=== PATIENT | male | born 1965 | race Caucasian/White ===

== ENCOUNTER 2020-11-18 11:12 | Outpatient (REF) | payer OTHER, SELFPAY | END 2020-11-18 11:13 | disposition home or self-care (01) | LOC: HO.SCI 11:12 | PROVIDERS: Visit Provider Psychiatry & Neurology Neurology | DX: Z13.89 Encounter for screening for other disorder (principal) ==

== ENCOUNTER 2020-11-25 07:19 | Outpatient (REF) | payer OTHER, SELFPAY ==
--- NOTE | ~2020-11-25 | MR_ITS ---
EXAMINATION: MRI BRAIN WITHOUT CONTRAST CLINICAL INFORMATION: Cerebellar degeneration. COMPARISON: No relevant prior imaging. TECHNIQUE: Multiplanar MR imaging of the brain was performed without contrast. FINDINGS: There are scattered nonspecific foci of T2 FLAIR signal hyperintensity within the periventricular white matter. No acute territorial infarct. No pathological magnetic susceptibility artifact. Intracranial arterial flow voids are maintained. There is no intracranial mass effect or midline shift. No abnormal extra-axial collection. Lateral and third ventricles are proportionate to the subarachnoid spaces. No hydrocephalus. Midline structures including the cervicomedullary junction are normal. No acute bone marrow signal changes. There is no mastoid middle ear effusion. Mild paranasal sinus disease primarily affecting the ethmoid air cells. Globes and orbits are symmetric. MR/MR head/brain wo con IMPRESSION: There are scattered chronic small vessel ischemic changes within the periventricular white matter. Otherwise MR examination. No evidence of acute territorial infarct or hemorrhage. Unremarkable appearance of the cerebellum and brainstem.
== END 2020-11-25 07:20 | disposition home or self-care (01) ==
LOC: HO.MRI 07:19
PROVIDERS: PCP Internal Medicine; Visit Provider Psychiatry & Neurology Neurology
DX: G31.9 Degenerative disease of nervous system, unspecified (principal)
CPT/HCPCS: 70551

== ENCOUNTER 2023-04-24 10:37 | Outpatient (REF) | payer OTHER, SELFPAY ==
[2023-04-30 15:32] LABS: Vitamin B1 23 nmol/L (8-30)
== END 2023-04-24 10:38 | disposition home or self-care (01) ==
LOC: HO.LAB 10:37
PROVIDERS: Visit Provider Psychiatry & Neurology Neurology
DX: G62.9 Polyneuropathy, unspecified (principal)
CPT/HCPCS: 36415; 80048; 80076; 82607; 82746; 84425; 84436; 84443

== ENCOUNTER 2025-02-02 11:02 | Outpatient (AMB) | payer MEDICARE, MEDICAID, SELFPAY ==
--- NOTE | 2025-02-02 11:09 | A.OFFVIS_ITS ---
Intake Visit Reasons: 6 mnts Allergies No Known Allergies Allergy (Verified 02/02/25 11:10) Medication List - Last Reconciled 02/02/25 by Luisa Rodriguez CNP bupropion HCl XL (Wellbutrin XL) 300 mg PO QAM cholecalciferol (vitamin D3) 50 mcg PO DAILY ferrous sulfate (Feosol) 325 mg PO DAILY gabapentin mg PO magnesium oxide 300 mg PO DAILY mecobalamin (vitamin B12) 1,000 mcg PO DAILY multivitamin 1 tab PO DAILY thiamine HCl (vitamin B1) 50 mg PO DAILY HPI Comments Details: He was doing okay. Pain was manageable with gabapentin. Occasional squeezing type pain in legs and rare sharp shooting pains in feet.? Has constant numbness in feet with some intermittent numbness and sensitivity up to knees. Feet are always cold. Sleep was okay.?Balance was off at times, no falls. 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 Numbness in fingers worse with colder weather. Forgetful at times. Ongoing knee pain, tried injections which did not help. Labs apparently showed low platelet count and was found to have cysts on liver.? Has noticed difficulty with short term memory starting around 2020. By his own admission, he was drinking 1 pint of vodka a day for many years. Has not been drinking since 12/2020. [facility] Medical History (Updated 02/02/25 @ 11:14 by Luisa Rodriguez CNP) MCI (mild cognitive impairment) Peripheral neuropathy Cerebellar degeneration Review of Systems Const Denies chills, Denies daytime sleepiness, Denies difficulty sleeping, Denies fatigue, Denies fever(s), Denies frequent falls, Denies headache(s), Denies increased appetite, Denies poor appetite, Denies snoring, Denies weakness, Denies weight gain and Denies weight loss Eyes Denies loss of vision ENT Denies vertigo, Denies dizziness, Denies headache(s) and Denies neck pain Card Denies chest pain at rest, Denies chest pain with activity, Denies syncope, Denies leg edema, Denies palpitations, Denies dyspnea and Denies dyspnea on exertion Resp Denies cough, Denies dyspnea, Denies dyspnea on exertion and Denies snoring GI Denies abdominal pain, Denies constipation, Denies heartburn, Denies diarrhea and Denies nausea Denies urinary frequency, Denies urinary incontinence and Denies urinary urgency Musc Denies abnormal gait, Denies back pain, Denies myalgias, Reports arthralgias, Denies neck pain, Reports numbness and Reports tingling Neuro Denies abnormal gait, Denies vertigo, Denies dizziness, Denies syncope, Denies frequent falls, Denies headache(s), Denies lack of coordination, Denies loss of vision, Reports memory loss, Reports numbness, Denies Other visual disturbances, Denies restless legs, Denies seizure-like activity, Reports tingling, Denies paresthesias, Denies tremor(s) and Denies weakness Psych Denies anxiety, Denies depression, Denies auditory hallucinations, Reports memory loss and Denies visual hallucinations Endo Denies fatigue and Denies palpitations Physical Exam Const Other: General Appearance:? normal, in no acute distress. Heart:? S1, S2 normal, no murmurs. Lungs:? clear anteriorly and posteriorly. Musculoskeletal:? normal. Extremities:? no edema. Psych:? alert, as below Neuro Other: Abnormal Neurological Findings:?MMSE 25/30. Mild tremor to bilateral upper extremities in sustained posture. Slight ataxia on [id number]. Truncal ataxia. Absent ankle reflexes. Decreased pinprick sensation below the ankles. Vibration sensation decreased below ankles. Mental Status: alert, as below Cranial Nerves: Pupils are equal, round, and reactive to light. External ocular muscles are intact. Visual mckeon are full, no ptosis. Face is symmetrical, no facial weakness or droop. Facial sensations are normal. Tongue protrudes in midline. Palate elevates symmetrically. Shoulder shrugging is normal Motor Examination: As above, otherwise normal muscle tone, bulk and strength. No atrophy or fasciculations. No drift of the extended upper extremities. DTR 2+. Plantars are flexor. Sensory Exam: As above Gait Exam: Truncal ataxia Cerebellar Signs: [id number] as above Extrapyramidal System: Tremor as above. No rigidity with normal facial expressions. No bradykinesia. No bradyphrenia. Normal arm swing and posture. No propulsion or retropulsion. Speech: Normal. No dysphasia or dysarthria. MMSE Level of Consciousness: Alert. Orientation: Knows correct year, month, date, day and season. Knows correct city, county and state. Knows correct location and floor. Registration: Able to register 3 objects. Attention: Serial 7's performed accurately to 93 Recall: Able to recall 1 out of 3 objects. Language: Normal spontaneous speech, fluency, repetition, naming, comprehension, reading, and writing. Total Score: 25/30. Assessment & Plan Assessment & Plan (1) Peripheral neuropathy: Code(s): G62.9 - Polyneuropathy, unspecified Category: Medical Qualifiers: Peripheral neuropathy type: polyneuropathy, unspecified Qualified Code(s): G62.9 - Polyneuropathy, unspecified Plan: Continue gabapentin 300mg 1 capsule twice a day and 2 capsules at bedtime (2) Cerebellar degeneration: Code(s): G31.9 - Degenerative disease of nervous system, unspecified Category: Medical Plan: . (3) MCI (mild cognitive impairment): Code(s): G31.84 - Mild cognitive impairment of uncertain or unknown etiology Category: Medical Plan: Stay physically and socially active. Medications: New gabapentin 300 mg orally 1 capsule twice a day and 2 caps at bedtime; 120 caps 5RF 30 days Discontinued gabapentin Discontinued Reason: Order PO Coding Level of Care Code Est Pt Level 4 (09883) Diagnoses Peripheral polyneuropathy G62.9 Peripheral neuropathy type: polyneuropathy, unspecified Cerebellar degeneration G31.9 MCI (mild cognitive impairment) G31.84
--- OUTSIDE RECORDS SUMMARY | 2025-02-02 12:20 | XMS_ITS | Clinical Summary ---
Author Organization [facility] Address [address] [place] [address] Phone Care Team Providers Care Blower Mechanic Name Role Phone Iván Kimble MD Primary Care Provider Allergies No known active allergies Medications buPROPion XL (WELLBUTRIN XL) 300 mg 24 hr tablet Take 1 tablet (300 mg total) by mouth 1 (one) time each day. 4 Active busPIRone (BUSPAR) 15 mg tablet Take 1 tablet (15 mg total) by mouth 3 (three) times a day if needed. 4 Active cholecalciferol (VITAMIN D-3) 50 mcg (2,000 unit) capsule Take 2,000 Units by mouth daily. - Oral Active cyanocobalamin (VITAMIN B-12) 1,000 mcg tablet Take by mouth. - Oral Active gabapentin (NEURONTIN) 300 mg capsule Take 1 capsule (300 mg total) by mouth 3 (three) times a day. - Oral Active magnesium oxide 400 mg magnesium capsule Magnesium ([facility]S Triple Magnesium Complex) 400 MG CAPS Take by mouth. - Oral Active multivitamin with minerals (CENTRUM) tablet Take by mouth daily. - Oral Active B-COMPLEX WITH VITAMIN C ORAL Take 1 tablet by mouth daily. - Oral Active Active Problems Problem Noted Date Diagnosed Date Chronic pain of both knees 06/02/2024 Liver hemangioma 03/11/2024 Encounters Date Type Department Care Team Description 12/31/2024 Telephone [facility] Hematology Oncology [address] [place] [address] Jeane Bass PA 12/15/2024 11:30 AM EDT Office Visit [facility] Hematology Oncology [address] [place] [phone] Jeane Bass PA Thrombocytopenia (CMS/HCC V24) (Primary Dx); History of heavy alcohol consumption; Liver hemangioma from Last 3 Months Immunizations Name Administration Dates Next Due Zoster recombinant (Shingrix) 19yo and older 09/2023 Family History Medical History Relation Name Comments Lung cancer Mother Relation Name Status Comments Mother Social History Tobacco Use Types Packs/Day Years Used Date Smoking Tobacco: Every Day Tobacco Cessation:Ready to Q uit: Not Asked; Counseling Given: Not Answered Alcohol Use Standard Drinks/Week Comments Not Currently 0 (1 standard drink = 0.6 oz pur e alcohol) Sex and Gender Information Value Date Recorded Sex Assigned at Not on file Legal Sex Male 2:49 AM EST Gender Identity Not on file Sexual Orientation Not on file Obstetrics History Last Filed Vital Signs Vital Sign Reading Time Taken Comments Blood Pressure 116/72 12/15/2024 11:30 AM EDT Pulse 63 12/15/2024 11:30 AM EDT Temperature 36.4 C (97.6 F) 12/15/2024 11:30 AM EDT Respiratory Rate 12 06/02/2024 9:28 AM EST Oxygen Saturation 100% 12/15/2024 11:30 AM EDT Inhaled Oxygen Concentration - - Weight 68 kg (150 lb) 12/15/2024 11:30 AM EDT Height 180.3 cm (5' 11 ) 06/16/2024 3:41 PM EST Body Mass Index 20.92 06/16/2024 3:41 PM EST Plan of Treatment Upcoming Encounters Date Type Department Care Team (Late st Contact Info) Description 03/18/2025 10:45 AM EDT Appointment Radiology Department - [address] [phone] 04/22/2025 3:00 PM EDT Office Visit Adult Medicine [address] [phone] Iván Kimble MD [address] [place] [phone] 06/15/2025 1:30 PM EST Office Visit [facility] Hematology Oncology [address] [place] [address] [phone] Jeane Bass PA [address] [place] [address] Health Maintenance Due Date Last Done Comments Hepatitis A Vaccines (1 of 2 - Risk 2-dose series) 1985 Hepatitis B Vaccines (1 of 3 - 19+ 3-dose series) 1985 Pneumococcal Vaccine: 50+ Years (1 of 2 - PCV) 1985 Cholesterol Screening (Lipid Panel) 06/23/2022 Colorectal Cancer Screening: Colonoscopy 06/23/2022 HIV Screening 06/23/2022 Hepatitis C Screening 06/23/2022 Lung Cancer Screening (Low Dose CT) 06/23/2022 Medicare Annual Wellness Visit 06/23/2022 Social Influencers of Health Screening 06/23/2022 DTaP,Tdap,and Td Vaccines (2 - Td or Tdap) 06/07/2024 06/07/2014 Depression Screening 07/15/2024 Influenza Vaccine (#1) 2025 4, 04/18/2022, 05/06/2020, Additional history exists COVID-19 Vaccine Completed 04/03/2024, 02/2022, 12/14/2020, Additional history exists Zoster Vaccines Completed 04/16/2024, 02/12/2024 HIB Vaccines Aged Out No longer eligi ble based on patient's age to complete this topic HPV Vaccines Aged Out No longer eligi ble based on patient's age to complete this topic IPV Vaccines Aged Out No longer eligi ble based on patient's age to complete this topic MMR Vaccines Aged Out No longer eligi ble based on patient's age to complete this topic Meningococcal ACWY Vaccine Aged Out N o longer eligible based on patient's age to complete this topic Meningococcal B Vaccine Aged Out No l onger eligible based on patient's age to complete this topic RSV Immunization Patients Under 20 months Aged Out No longer eligible based on patient's age to complete this topic Varicella Vaccines Aged Out No longer eligible based on patient's age to complete this topic Goals Goal Patient Goal Type Associated Problems Recent Progress Patient-Stated? Author STG's 6 visits General Yes Kennedy Cuello, PT Note: Pt will report a 25% decrease in difficulty when negotiating stairs to enter/exit his home. (Not met) Pt will report a 2 point decrease in B knee pain with prolonged walking. (Not met). Pt will be I and compliant w/ initial HEP of stretching. (Met) LTG 12 visits. General Yes Kennedy Cuello, PT Note: Pt will report a 35% decrease in difficulty when negotiating stairs to enter/exit his home. (Not met). Pt will report a 3 point decrease in B knee pain with prolonged walking. (Not met) Pt will be I and compliant w/ final HEP of CKC strengthening. (Met) Procedures Procedure Name Priority Date/Time Associated Diagnosis Comments CBC WITH AUTO DIFFERENTIAL Routine 12/08/2024 11:37 AM EDT Thrombocytopenia ([facility]/HCC V24) COMPREHENSIVE METABOLIC PANEL Routine 12/08/2024 11:37 AM EDT Thrombocytopenia ([facility]/HCC V24) History of heavy alcohol consumption Liver hemangioma CBC AND DIFFERENTIAL Routine 12/08/2024 11:37 AM EDT Thrombocytopenia ([facility]/HCC V24) from Last 3 Months Results * (ABNORMAL) CBC auto differential (12/08/2024 11:37 AM EDT) WBC 6.3 4.8 - 10.8 K/mcL LAB HEMETOLOGY METHOD 12/08/2024 1:53 PM EDT [facility] RBC 4.80 4.50 - 5.50 M/mcL LAB HEMETOLOGY METHOD 12/08/2024 1:53 PM EDT [facility] Hemoglobin 14.8 13.5 - 17.5 g/dL LAB HEMETOLOGY METHOD 12/08/2024 1:53 PM EDT [facility] Hematocrit 44.7 42.0 - 54.0 % LAB HEMETOLOGY METHOD 12/08/2024 1:53 PM EDT [facility] MCV 93.7 79.0 - 98.0 FL LAB HEMETOLOGY METHOD 12/08/2024 1:53 PM EDT [facility] MCH 31.0 27.0 - 32.0 pcg LAB HEMETOLOGY METHOD [facility] MCHC 33.1 32.0 - 37.0 g/dL LAB HEMETOLOGY METHOD 12/08/2024 1:53 PM EDT [facility] RDW 13.1 11.0 - 15.0 % LAB HEMETOLOGY METHOD 12/08/2024 1:53 PM EDT [facility] Platelets 54(L) 130 - 400 K/mcL LAB HEMETOLOGY METHOD 12/08/2024 1:53 PM EDT [facility] Comment:previously verified by slide MPV 12.4(H) 7.0 - 11.0 FL LAB HEMETOLOGY METHOD 12/08/2024 1:53 PM EDT [facility] NRBC 0.0 <1.0 % LAB HEMETOLOGY METHOD 12/08/2024 1:53 PM EDT [facility] NRBC Absolute 0.00 <0.10 K/mcL LAB HEMETOLOGY METHOD 12/08/2024 1:53 PM EDT [facility] Neutrophils Relative 55.9 % LAB HEMETOLOGY METHOD 12/08/2024 1:53 PM EDT [facility] Lymphocytes Relative 34.4 % LAB HEMETOLOGY METHOD 12/08/2024 1:53 PM EDT [facility] Monocytes Relative 6.5 % LAB HEMETOLOGY METHOD 12/08/2024 1:53 PM EDT [facility] Eosinophils Relative 2.5 % LAB HEMETOLOGY METHOD [facility] Basophils Relative 0.5 % LAB HEMETOLOGY METHOD 12/08/2024 1:53 PM EDT [facility] Immature Granulocytes Relative 0.2 % LAB HEMETOLOGY METHOD 12/08/2024 1:53 PM EDT [facility] Neutrophils Absolute 3.55 1.50 - 7.00 K/mcL LAB HEMETOLOGY METHOD 12/08/2024 1:53 PM EDT [facility] Lymphocytes Absolute 2.18 1.00 - 5.00 K/mcL LAB HEMETOLOGY METHOD 12/08/2024 1:53 PM EDT [facility] Monocytes Absolute 0.41 0.20 - 1.00 K/mcL LAB HEMETOLOGY METHOD 12/08/2024 1:53 PM EDT [facility] Eosinophils Absolute 0.16 0.00 - 0.50 K/mcL LAB HEMETOLOGY METHOD 12/08/2024 1:53 PM EDT [facility] Basophils Absolute 0.03 0.00 - 0.20 K/mcL LAB HEMETOLOGY METHOD 12/08/2024 1:53 PM EDT [facility] Immature Granulocytes Absolute 0.01 0.00 - 0.03 K/mcL LAB HEMETOLOGY METHOD 12/08/2024 1:53 PM EDT [facility] Blood Venous blood specimen / Unknown Venipuncture / Unknown 12/08/2024 11:37 AM EDT 12/08/2024 1:33 PM EDT us Jeane MCWILLIAMS LAB BLOOD ORDERABLES Final Re sult [facility] [address] [place] [address], * Comprehensive metabolic panel (12/08/2024 11:37 AM EDT) Sodium 137 133 - 145 mmol/L LAB CHEMISTRY METHOD 12/08/2024 1:58 PM EDT [facility] Potassium 4.4 3.5 - 5.5 mmol/L LAB CHEMISTRY METHOD 12/08/2024 1:58 PM [facility] Chloride 105 96 - 110 mmol/L LAB CHEMISTRY METHOD 12/08/2024 1:58 PM [facility] CO2 26 21 - 32 mmol/L LAB CHEMISTRY METHOD 12/08/2024 1:58 PM [facility] Anion Gap 6 3 - 11 LAB CHEMISTRY METHOD 12/08/2024 1:58 PM [facility] Glucose 96 70 - 100 mg/dL LAB CHEMISTRY METHOD 12/08/2024 1:58 PM [facility] BUN 14 5 - 25 mg/dL LAB CHEMISTRY METHOD 12/08/2024 1:58 PM [facility] Creatinine 1.04 0.70 - 1.30 mg/dL LAB CHEMISTRY METHOD 12/08/2024 1:58 PM [facility] eGFR 83 >=60 mL/min/1. 73m2 LAB CHEMISTRY METHOD 12/08/2024 1:58 PM [facility] Comment:Calculation based on the Chronic Kidney Disease Epidemiology Collaboration (CKD-EPI) equation refit without adjustment for race. BUN/Creatinine Ratio 13.5 LAB CHEMISTRY METHOD 12/08/2024 1:58 PM [facility] Calcium 9.3 8.5 - 10.5 mg/dL LAB CHEMISTRY METHOD 12/08/2024 1:58 PM [facility] AST (SGOT) 12 10 - 42 unit/L LAB CHEMISTRY METHOD 12/08/2024 1:58 PM [facility] ALT (SGPT) 26 10 - 60 unit/L LAB CHEMISTRY METHOD 12/08/2024 1:58 PM [facility] Alkaline Phosphatase 69 42 - 121 unit/L LAB CHEMISTRY METHOD 12/08/2024 1:58 PM [facility] Total Protein 7.2 6.0 - 8.0 g/dL LAB CHEMISTRY METHOD 12/08/2024 1:58 PM EDT [facility] Albumin 4.0 3.2 - 5.0 g/dL LAB CHEMISTRY METHOD 12/08/2024 1:58 PM EDT [facility] Total Bilirubin 0.4 0.0 - 1.4 mg/dL LAB CHEMISTRY METHOD 12/08/2024 1:58 PM EDT [facility] Blood Venous blood specimen / Unknown Venipuncture / Unknown 12/08/2024 11:37 AM EDT 12/08/2024 1:33 PM EDT us Jeane MCWILLIAMS LAB BLOOD ORDERABLES Final Re sult [facility] [address] [place] [address], from Last 3 Months Insurance MEDICAID - [place] MEDICARE Care Teams Blower Mechanic Relationship Specialty Start Date End Date Iván Kimble MD [address] [place] [address] PCP - General 10/31/23
--- OUTSIDE RECORDS SUMMARY | 2025-02-02 12:20 | XMS_ITS | Clinical Summary ---
Author Organization [facility] Address [address] [place] [address] Care Team Providers Care Retirement Specialist Name Role Phone Iván Kimble MD Primary Care Provider [phone] Allergies No known active allergies Medications Medication Sig Dispensed Refills Start Date End Date Status Multiple Vitamins-Minerals (MULTIVITAMIN ADULTS PO) Take by mouth daily. 0 Active gabapentin (NEURONTIN) 300 MG capsule Take 1 capsule (300 mg total) by mouth 3 (three) times a day. 0 Active busPIRone (BUSPAR) 15 MG tablet Take 1 tablet (15 mg total) by mouth 3 (three) times a day. 0 Active buPROPion (WELLBUTRIN XL) 300 MG 24 hr tablet Take 1 tablet (300 mg total) by mouth daily. 0 Active Cyanocobalamin ER ([facility]S Vitamin B-12) 2000 MCG TBCR Take by mouth. 0 Active Magnesium ([facility]S Triple Magnesium Complex) 400 MG CAPS Take by mouth. 0 Active vitamin B complex w/ vitamin C (TOTAL B/C) TABS tablet Take 1 tablet by mouth daily. 0 Active Cholecalciferol (Vitamin D3) 50 MCG (2000 UT) capsule Take 2,000 Units by mouth daily. 0 Active Active Problems Problem Noted Date Diagnosed Date Liver hemangioma 03/10/2024 Family History Medical History Relation Name Comments Lung cancer Mother Relation Name Status Comments Mother Social History Tobacco Use Types Packs/Day Years Used Date Smoking Tobacco: Every Day Cigarettes Tobacco Cessation:Ready to Q uit: Not Asked; Counseling Given: Not Answered Comments:He smokes 3/4 ppd Alcohol Use Standard Drinks/Week Comments Not Currently 0 (1 standard drink = 0.6 oz pure alcohol) Hx of heavy alcohol use for 30 years (1 pint of vodka + 2 nips of schnapps daily); QUIT December/2020 Sex and Gender Information Value Date Recorded Sex Assigned at Not on file Gender Identity Not on file Sexual Orientation Not on file Job Start Date Occupation Industry Not on file Not on file Not on file Last Filed Vital Signs Vital Sign Reading Time Taken Comments Blood Pressure 139/69 03/10/2024 9:28 AM EDT Pulse 62 03/10/2024 9:28 AM EDT Temperature 36.1 C (96.9 F) 03/10/2024 9:28 AM EDT Respiratory Rate - - Oxygen Saturation 100% 03/10/2024 9:28 AM EDT Inhaled Oxygen Concentration - - Weight 69.6 kg (153 lb 6.4 oz) 03/10/2024 9:28 A M EDT Height 180.3 cm (5' 11 ) 01/28/2024 8:38 AM EDT Body Mass Index 21.39 01/28/2024 8:38 AM EDT Plan of Treatment Health Maintenance Due Date Last Done Comments Hepatitis B Vaccines (1 of 3 - 3-dose series) 1966 Hepatitis C Screening 1966 COVID-19 Vaccine (#1) 01/29/1967 Pneumococcal Vaccine (1 of 2 - PCV) 1972 Depression Screening 1978 Preventative Health Evaluation 1984 Colon Cancer Screening (Colonoscopy) 2011 Shingrix-Zoster Vaccine (1 o f 2) 2016 DTap / Tdap / Td (2 - Td or Tdap) 06/07/2024 06/07/2014 Influenza Vaccine (#1) 2025 2, 05/06/2020, 06/07/2014 RSV Ped < 20 months Aged Out No longe r eligible based on patient's age to complete this topic Care Teams Retirement Specialist Relationship Specialty Start Date End Date Iván Kimble MD [address] [place] [address] PCP - General Internal Medicine 01/03/24
== END 2025-02-02 11:27 | disposition home or self-care (01) ==
LOC: HO.HSM 11:02
PROVIDERS: PCP Internal Medicine; Visit Provider Registered Nurse
DX: G62.9 Polyneuropathy, unspecified (principal); G31.9 Degenerative disease of nervous system, unspecified; G31.84 Mild cognitive impairment of uncertain or unknown etiology
CPT/HCPCS: 99214

== ENCOUNTER → 2025-02-02 11:02 | Outpatient (BNVA) | payer MEDICARE, MEDICAID, SELFPAY | PROVIDERS: PCP Internal Medicine; Visit Provider Registered Nurse | DX: G62.9 Polyneuropathy, unspecified (principal); G31.9 Degenerative disease of nervous system, unspecified | CPT/HCPCS: 99212 ==